=== PATIENT | female | born 1975 | race Caucasian/White ===

== ENCOUNTER 2018-02-11 02:06 | Inpatient (IN) ==
[2018-02-11] MEDS ORDERED: Acetaminophen 325 MG Tablet PO PRN (12:11)
[2018-02-11] MEDS ORDERED: Aluminum/Magnesium/Simethacone Susp 30 ML UDC PO PRN (12:11)
[2018-02-11 12:13] LABS: Anion Gap 10 meq/L (5-15); Blood Urea Nitrogen 6 mg/dL (7-18); Calcium 8.3 mg/dL (8.5-10.1); Carbon Dioxide 23.3 meq/L (21.0-32.0); Chloride 112 meq/L (98-107); Cholesterol 103 mg/dL (120-200); Glomerular Filtration Rate Greater Than 89 mL/min (>89); Glucose,Random 77 mg/dL (74-106); Potassium 3.9 meq/L (3.5-5.1); Sodium 145 meq/L (136-145)
[2018-02-11 12:16] LABS: Chol/HDL Ratio 1.76 Ratio; HDL Cholesterol 58.5 mg/dL (40.0-60.0); LDL Cholesterol,Calculated 36 mg/dL (0-99); Triglycerides 45 mg/dL (42-150)
--- NOTE | 2018-02-11 13:06 | P.CON ---
History of Present Illness Primary Care Provider: UNKNOWN History of Present Illness: The patient is a pleasant 43-year-old female with history of high blood pressure says she is not taking any medications and is diet controlled, depression. Patient is admitted to the inpatient psych unit for further evaluation and treatment psychiatry following. The hospitalist is consulted for medical management. The patient is in bed at this time she appears to not acute distress. She denies having any headaches, change in vision, motor or diffuse sensory deficit. She is eating fairly well no nausea or vomiting. No diarrhea constipation. She has no complaints. No urinary complaints. Says she has some abdominal cramps however feels better she is able to eat without any problems. Had a normal bowel movement. No fever or chills. Able to ambulate. She complains of feeling depressed. 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 - Medical History Medical History: Medical History (Last Updated 02/11/18 @ 13:01 by Kari Kraft MD) Duodenal disorder Hypertension - Family History Family History: Family History (Last Updated 02/11/18 @ 13:02 by Kari Kraft MD) Father Diabetes mellitus Mother Cancer - Tobacco History Second Hand Smoke Exposure: No Tobacco Use In Past 30 Days: Yes Smoking Status: Current every day smoker Tobacco Type: Cigarettes - Alcohol History How Often Do You Have a Drink Containing Alcohol: Monthly or less - Substance Use History Substance History: No History of Abuse Medications and Allergies Active Medications: Active Medications Acetaminophen (Tylenol) 650 mg PO Q4H PRN PRN Reason: Pain 1-5 or Temp >101F Al Hydrox/Mg Hydrox/Simethicone (Mag-Al Plus Susp Liq) 30 ml PO Q6H PRN PRN Reason: DYSPEPSIA Diphenhydramine HCl (Benadryl) 50 mg PO Q6H PRN PRN Reason: For mild anxiety and/or EPS Diphenhydramine HCl (Benadryl) 50 mg PO HS PRN PRN Reason: INSOMNIA Diphenhydramine HCl (Benadryl Inj) 50 mg IM Q6H PRN PRN Reason: For mild anxiety and/or EPS Diphenhydramine HCl (Benadryl Inj) 50 mg IM HS PRN PRN Reason: INSOMNIA Hydroxyzine HCl (Atarax) 50 mg PO Q6H PRN PRN Reason: ANXIETY Nicotine (Habitrol 21 Mg Patch.24 Hr) 1 patch T-DERMAL DAILY [facility] Last Admin: 02/11/18 12:47 Dose: 1 patch Patch Removal (Remove Old Patch) 1 each T-DERMAL DAILY [facility] Allergies Allergy/AdvReac Type Severity Reaction Status Date / Time No Known Allergies Allergy Unverified 02/11/18 04:48 Physical Exam Vital signs: Vital Signs 02/11/18 06:18 Temperature 98.1 F Pulse Rate 87 Respiratory Rate 17 Blood Pressure 118/79 Pulse Oximetry 99 Intake & Output 02/10/18 02/11/18 02/11/18 18:59 06:59 18:59 Weight 68.2 kg Narrative: GENERAL: Pleasant female, appears in nad. SKIN: Warm and dry. HEAD: Atraumatic. Normocephalic. EYES: Pupils equal and round. No scleral icterus. No injection or drainage. ENT: No nasal bleeding or discharge. Mucous membranes pink and moist. NECK: Trachea midline. No JVD. CARDIOVASCULAR: Regular rate and rhythm. RESPIRATORY: No accessory muscle use. Clear to auscultation. Breath sounds equal bilaterally. GASTROINTESTINAL: Abdomen soft, non-tender, nondistended. Hepatic and splenic margins not palpable. MUSCULOSKELETAL: Extremities without clubbing, cyanosis, or edema. No obvious deformities. NEUROLOGICAL: Awake and alert. No obvious cranial nerve deficits. Motor grossly within normal limits. Five out of 5 muscle strength in the arms and legs. Normal speech. PSYCHIATRIC: Appropriate mood and affect; insight and judgment normal. Assessment and Plan - Plan Depression: anagement per psych HTN per patient diet controlled says she is not taking any meds. Attributes to anxiety. Patient BP is normal to lower side. Monitor. Control anxiety. If sustained elevated BP can start low dose HCTZ 12,5 daily and titrate up. Patient to follow up as OP with PCP Abdominal pain earlier atributes to anxiety. Abd pain resolved. Patient has no signs of infection. Abd is soft, she is tolerating food. normal BM Appears stable medically The hospitalist will signs off Thank you for this consultation
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
[2018-02-11] MEDS: LORazepam 1 MG Tablet PO PRN (14:47)
[2018-02-11 16:29] LABS: Hemoglobin A1c 5.4 % (4.3-6.0)
[2018-02-11] MEDS ORDERED: QUEtiapine 100 MG Tablet PO SCH (21:00)
[2018-02-12] MEDS: Zolpidem Tartrate 5 MG Tablet PO PRN ×2 (00:43→23:56)
[2018-02-12] MEDS: LORazepam 1 MG Tablet PO PRN (09:08)
--- NOTE | 2018-02-12 16:14 | P.DIET ---
Nutritional Evaluation Type of nutrition evaluation: initial Nutrition screening: Poor PO Intake, MDC Subjective Subjective Comments: Pt reports she feels much better, no complaints of any abdominal pain. Objective - Diagnosis Suicidal Ideation - Objective % IBW: 110 Body Weight Used for Calculations: Actual (68kg) Energy Needs - Lower Range (kCal/kg): 25 Energy Needs - Upper Range (kCal/kg): 30 Lower Limit kCal/kg (kCals): 1,700 Upper Limit kCal/kg (kCals): 2,040 Lower Limit Protein Factor (Grams per Kg): 1.1 Upper Limit Protein Factor (Grams per Kg): 1.3 Lower Protein Needs (Protein): 75 Upper Protein Needs (Protein): 88 Fluid Factor (ml/kg): 30 Estimated Fluid Needs (ml): 2,040 Dietitian Reviewed in Medical Record: Current diet, Curent medications, Intake & Output, Labs, Medical history Oral Diet Intake Amount: Excellent 90%+ Objective Comments: PMH: HTN, Anemia, Duodenal disorder Assessment Assessment: Pt admitted with suicidal ideations with initial poor po intake. Per MD consult , pt's abdominal pain is resolved, she is eating 90-100% of her meals, had normal BM. Pt's nutritional needs as stated above. PO intake appears adequate at this time. Please re-consult RD if needed. Recommendations: Pt on regualr diet, eating 90-100% Reconsult dietitian if needed.
--- NOTE | 2018-02-12 16:49 | P.PNPSY ---
Subjective Remarks: Patient seen for follow-up, chart reviewed. Discussion nursing staff reported the patient had been feeling nauseous this morning but eat breakfast. Patient was found lying hospital bed noted B, cooperative. Patient noted to be tearful at times during interview. Patient states that she had some vomiting yesterday but none today just nausea. Patient reports sleeping well, reporting feeling anxious today he continued to feel depressed but states that is slightly less today. Patient denying suicide ideations this morning denying any auditory hallucinations but continued to be noted to be withdrawn and mostly isolative in her room. Patient agrees to participate in groups and activities. Review of Systems All other systems reviewed negative except as stated in HPI Mental Status Examination Appearance: Appropriate Consciousness: Alert Orientation: Person, Place, Date/Time Motor Activity: Normal gait Speech: Unremarkable Language: Adequate Fund of Knowledge: Inadequate Attention and Concentration: Adequate Memory: Unremarkable Mood: Sad, Anxious Affect: Sad, Anxious, Other (Tearful during interview) Thought Process & Associations: Linear Thought Content: Appropriate Hallucination Type: None Delusion Type: None Suicidal Ideation: Yes Suicidal Plan: No Suicidal Intention: No Homicidal Ideation: No Homicidal Plan: No Homicidal Intention: No Insight: Fair Judgment: Impulsive Assessment and Plan - Assessment (1) Major depressive disorder Code(s): F32.9 - Major depressive disorder, single episode, unspecified Status : Acute - Plan Plan: Patient this time continue with depressed mood but denying any suicide ideations this morning, patient continues noted to be withdrawn and isolative. We will continue to titrate quetiapine to 100 mg p.o. at bedtime for mood stabilization and depression. Hospitalist input appreciated, dietitian input appreciated. Continue rest of medications. Continue to monitor mood and behavior. Discharge planning a progress. Justification for Continued Inpatient Stay: At risk of further decompensation a lower level of care. (1) Major depressive disorder Qualifiers: Major depression recurrence: recurrent Active/Remission status: currently active Major depression episode severity: severe Psychotic features: with psychotic features Qualified Code(s): F33.3 - Major depressive disorder, recurrent, severe with psychotic symptoms
[2018-02-12] MEDS ORDERED: QUEtiapine 100 MG Tablet PO SCH (21:00)
[2018-02-13] MEDS: LORazepam 1 MG Tablet PO PRN (09:36)
--- NOTE | 2018-02-13 13:32 | P.PNPSY ---
Subjective Remarks: Patient seen for follow, chart reviewed. Discussion nursing staff reported the patient with no behavioral issues, slept well, compliant with treatment. Patient was found lying hospital bed noted calm and cooperative. Patient states she slept well last evening, reported feeling less depressed, denying suicide ideations or perceptual disturbances or delusions. Patient states that she is eating somewhat better. Patient request to be taken to a lesser acute unit as he stated having difficulty at night due to level noise on the unit. She states having spoken to her family over the phone which had gone well. Review of Systems All other systems reviewed negative except as stated in HPI Mental Status Examination Appearance: Appropriate Consciousness: Alert Orientation: Person, Place, Date/Time Motor Activity: Normal gait Speech: Unremarkable Language: Adequate Fund of Knowledge: Inadequate Attention and Concentration: Adequate Memory: Unremarkable Mood: Sad Affect: Sad (Less so today) Thought Process & Associations: Linear Thought Content: Appropriate Hallucination Type: None Delusion Type: None Suicidal Ideation: No Suicidal Plan: No Suicidal Intention: No Homicidal Ideation: No Homicidal Plan: No Homicidal Intention: No Insight: Fair Judgment: Impulsive Assessment and Plan - Assessment (1) Major depressive disorder Code(s): F32.9 - Major depressive disorder, single episode, unspecified Status : Acute - Plan Plan: Patient noted to have improvement of mood, noted to be less depressed, not tearful today and denying any suicide ideations. We will continue to titrate quetiapine to 150 mg p.o. at bedtime for mood stabilization and depression. We will continue to monitor mood and behavior. Patient likely for discharge tomorrow if patient continues to improve. Discharge planning a progress. Justification for Continued Inpatient Stay: At risk of further decompensation a lower level of care. (1) Major depressive disorder Qualifiers: Major depression recurrence: recurrent Active/Remission status: currently active Major depression episode severity: severe Psychotic features: with psychotic features Qualified Code(s): F33.3 - Major depressive disorder, recurrent, severe with psychotic symptoms
[2018-02-13] MEDS ORDERED: QUEtiapine 100 MG Tablet PO SCH (21:00)
[2018-02-13] MEDS: Zolpidem Tartrate 5 MG Tablet PO PRN (21:31)
[2018-02-14] MEDS: LORazepam 1 MG Tablet PO PRN (09:13)
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
== END 2018-02-14 13:30 | disposition home or self-care (01) ==
LOC: H270 04:15 → H260 02-13 18:24
PROVIDERS: ADMIT Student in an Organized Health Care Education/Training Program; ATTEND Student in an Organized Health Care Education/Training Program